=== PATIENT | male | born 1960 | race Caucasian/White ===

== ENCOUNTER → 2022-08-01 | Day surgery (SDC) | payer OTHER ==
[2022-07-29 10:24] VITALS: BMI 31.3
== END | disposition home or self-care (01) ==
LOC: JASU-SURG 04:03
PROVIDERS: ATTEND Urology
DX: Z53.8 Procedure and treatment not carried out for other reasons (principal)

== ENCOUNTER 2022-09-12 04:12 | Day surgery (SDC) | payer OTHER ==
[2022-09-08 15:23] VITALS: BMI 31.3
[2022-09-12 10:07] VITALS: RESP 18
[2022-09-12] MEDS ORDERED: MIDAZOLAM HCL 2 MG/2 ML SINGLE DOSE VIAL ONE (14:15)
[2022-09-12] MEDS ORDERED: FENTANYL CITRATE/PF 50 MCG/ML VIAL ONE (14:15)
[2022-09-12] MEDS ORDERED: ONDANSETRON 4 MG/2 ML VIAL ONE (14:16)
[2022-09-12 16:29] VITALS: BP 118/72; PULSE 70; TEMP 97.7
== END 2022-09-12 16:34 | disposition home or self-care (01) ==
LOC: JASU-SURG 04:12
PROVIDERS: ATTEND Urology
PROC: 0TF4XZZ Fragmentation in Left Kidney Pelvis, External Approach (ICD-10-PCS; principal; 2022-09-12 12:00)
DX: N20.0 Calculus of kidney (principal)
CPT/HCPCS: 82962